=== PATIENT | female | born 1960 ===

== ENCOUNTER 2016-11-15 05:17 | Emergency (ER) | payer BC ==
[2016-11-15 05:27] VITALS: BP 129/69
--- NOTE | 2016-11-15 05:34 | EDM.PDOC ---
ED HPI GENERAL MEDICAL PROBLEM - General Chief Complaint: ENT Problem Stated Complaint: EAR AND THROAT PAIN Time Seen by Provider: 11/15/16 05:32 Source of Information: Reports: Patient History Limitations: Reports: No Limitations - History of Present Illness INITIAL COMMENTS - FREE TEXT/NARRATIVE: 1 week h/o Sx Bilateral Ear Pain Score (Numeric/FACES): 8 - Related Data Allergies Allergy/AdvReac Type Severity Reaction Status Date / Time No Known Allergies Allergy Verified 11/15/16 05:20 Home Meds: Home Meds Estradiol Acetate [Femring] 1 each VG ASDIRECTED 11/15/16 [History] FLUoxetine HCl [Fluoxetine] 20 mg PO DAILY 11/15/16 [History] Past Medical History Other OB/BYN History: 2 c sections Social & Family History - Family History Family Medical History: Noncontributory ED ROS ENT - Review of Systems Review Of Systems: ROS reveals no pertinent complaints other than HPI. ED EXAM, ENT - Physical Exam Exam: See Below Exam Limited By: No Limitations General Appearance: Alert, WD/WN, No Apparent Distress Ears: TM Dullness, TM Erythema Mouth/Throat: Pharyngeal Erythema Head: Atraumatic Neck: Non-Tender, Full Range of Motion Respiratory/Chest: No Respiratory Distress, No Accessory Muscle Use, Rhonchi Cardiovascular: Regular Rate, Rhythm GI/Abdominal: Soft, Non-Tender Neurological: Alert, Oriented, Normal Cognition, Normal Gait, No Motor/Sensory Deficits Psychiatric: Normal Affect, Normal Mood Skin: Warm, Dry Lymphatic: No Adenopathy Course - Vital Signs Last Recorded V/S: Last Vital Signs Temp 35.9 C 11/15/16 05:26 Pulse 74 11/15/16 05:26 Resp 18 11/15/16 05:26 BP 129/69 11/15/16 05:26 Pulse Ox 98 11/15/16 05:26 - Orders/Labs/Meds Orders: Active Orders 24 hr Category Date Time Status CULTURE STREP A CONFIRMATION [] Stat Lab 11/15/16 05:28 Results STREP SCRN A RAPID W CULT CONF [RM] Stat Lab 11/15/16 05:28 Results Amoxicillin [Amoxil] Med 11/15/16 05:55 Once 250 mg PO ONETIME ONE - Re-Assessments/Exams Free Text/Narrative Re-Assessment/Exam: 11/15/16 05:56 results discussed with pt. Departure - Departure Time of Disposition: 05:56 Disposition: Home, Self-Care 01 Condition: Good Clinical Impression: Tonsillitis Otitis media Qualifiers: Otitis media type: suppurative Chronicity: acute Laterality: right Recurrence: not specified as recurrent Spontaneous tympanic membrane rupture: without spontaneous rupture Qualified Code(s): H66.001 - Acute suppurative otitis media without spontaneous rupture of ear drum, right ear - Discharge Information Instructions: Tonsillitis, [id number] Forms: ED Department Discharge Additional Instructions: 1) avoid solid foods and scratchy foods 2) try salt water gargle 3) take tylenol or motrin for fever 4) recheck as needed rx given; amoxil 250mg tid x 30 - My Orders Last 24 Hours: My Active Orders 11/15/16 05:28 CULTURE STREP A CONFIRMATION [RM] Stat STREP SCRN A RAPID W CULT CONF [] Stat 11/15/16 05:55 Amoxicillin [Amoxil] 250 mg PO ONETIME ONE - Assessment/Plan Last 24 Hours: My Active Orders 11/15/16 05:28 CULTURE STREP A CONFIRMATION [] Stat STREP SCRN A RAPID W CULT CONF [] Stat 11/15/16 05:55 Amoxicillin [Amoxil] 250 mg PO ONETIME ONE
[2016-11-15] MEDS ORDERED: Amoxicillin 250 MG Cap PO ONE (05:55)
== END 2016-11-15 06:05 | disposition home or self-care (01) ==
LOC: DL.ED 05:17
DX: H66.001 Acute suppurative otitis media without spontaneous rupture of ear drum, right ear (principal); J03.90 Acute tonsillitis, unspecified; Z79.899 Other long term (current) drug therapy
CPT/HCPCS: 87081; 87430; 99283; A9270